=== PATIENT | female | born 1985 | race American Indian/Alaskan Native ===

== ENCOUNTER 2016-07-05 11:29 | Emergency (ER) | payer OTHER ==
[2016-07-05] MEDS ORDERED: DUONEB 0.5 MG-3 MG/3 ML SOLN IH ONE (13:40)
[2016-07-05] MEDS ORDERED: TORADOL IM ONE (13:40)
--- NOTE | 2016-07-05 13:41 | Emergency Department Report ---
- General Chief Complaint: Upper Respiratory Infection Stated Complaint: NECK AND HEAD PAIN/STOMACH PAIN/NASAL CONGESTION Time Seen by Provider: 07/05/16 13:16 Source: patient Mode of arrival: Ambulatory Limitations: No Limitations - History of Present Illness Initial Comments: This is a 31-year-old female well-nourished with nontoxic or ill in appearance that presents with congestion, headache, wheezing, productive cough for the past 2 weeks. Patient stated headache is a gradual onset that is aching in quality with a pain level of 2 out of a 10. Patient denies thunderclap headache. Denies nausea or vomiting. Denies abdominal pain, chest pain, fever , chills, shortness of breath, blurry vision, or visual changes. Patient stated has history of asthma and does not apartment care doctor. Patient denies taking anything [id number] or having prescription for asthma control. Patient states she is a smoker. Patient also complains of sore throat. Patient states she feels that she is swallowing razor blades. Patient denies drooling, difficulty swallowing, or breathing. Denies hoarseness. Denies alcohol or drug abuse. No known allergies. MD Complaint: cough (productive with yellow sputum production), sore throat -: Gradual, week(s) (2) Severity: mild Severity scale (0 -10): 2 Quality: sharp (sore throat), aching (headache) Consistency: constant Associated Symptoms: headache, sore throat, cough. denies: fever, chills, myalgias, diaphoresis, rhinorrhea, nasal congestion, stiff neck, chest pain, shortness of breath, abdominal pain, nausea, vomiting, diarrhea, dysuria, rash, confusion, right sweats, weight loss, epistaxis, hoarseness, ear pain - Related Data Previous Rx's Medication Instructions Recorded Last Taken Type ALBUTEROL NEB's [Proventil 0.083% 2.5 mg IH TID PRN #1 box 01/02/14 Unknown Rx NEBS] Nebulizer [Compact Compressor 1 each MC ONCE #1 kit 01/02/14 Unknown Rx Nebulizer] Prednisone [Prednisone 10 mg 10 mg PO .TAPER #1 tab.ds.pk 01/02/14 Unknown Rx (6-Day Pack, 21 Tabs)] ALBUTEROL Inhaler [ProAir HFA 2 puff IH QID PRN #1 inhalation 03/01/15 Unknown Rx Inhaler] Sulfamethoxazole/Trimethoprim 1 each PO BID #14 tablet 03/01/15 Unknown Rx [Bactrim DS TAB] metroNIDAZOLE [Flagyl] 500 mg PO Q12HR #14 tab 03/01/15 Unknown Rx ALBUTEROL Inhaler [ProAir HFA 1 puff IH PRN #1 inha 07/05/16 Unknown Rx Inhaler] Azithromycin [Zithromax Z-ADA] 250 mg PO DAILY 5 Days 07/05/16 Unknown Rx Prednisone [predniSONE] 40 mg PO QDAY 5 Days 07/05/16 Unknown Rx Allergies Allergy/AdvReac Type Severity Reaction Status Date / Time No Known Allergies Allergy Unverified 05/04/13 09:55 ED Review of Systems ROS: Stated complaint: NECK AND HEAD PAIN/STOMACH PAIN/NASAL CONGESTION Other details as noted in HPI Constitutional: denies: chills, fever Eyes: denies: eye pain, eye discharge, vision change ENT: denies: ear pain, throat pain Respiratory: cough, wheezing. denies: shortness of breath, SOB with exertion, SOB at rest Cardiovascular: denies: chest pain, palpitations, dyspnea on exertion, orthopnea , edema, syncope, paroxysmal nocturnal dyspnea Endocrine: no symptoms reported Gastrointestinal: denies: abdominal pain, nausea, vomiting, diarrhea, constipation, hematemesis, melena, hematochezia Genitourinary: denies: urgency, dysuria, discharge Musculoskeletal: denies: back pain, joint swelling, arthralgia Skin: denies: rash, lesions Neurological: headache. denies: weakness, numbness, paresthesias, confusion, abnormal gait, vertigo Psychiatric: denies: anxiety, depression Hematological/Lymphatic: denies: easy bleeding, easy bruising ED Past Medical Hx - Past Medical History Previous Medical History?: Yes Hx Asthma: Yes - Surgical History Past Surgical History?: Yes Additional Surgical History: ectopic --right tube removed - Social History Smoking Status: Current Every Day Smoker Substance Use Type: Alcohol - Medications Home Medications: Home Medications Medication Instructions Recorded Confirmed Last Taken Type ALBUTEROL NEB's [Proventil 0.083% 2.5 mg IH TID PRN #1 box 01/02/14 Unknown Rx NEBS] Nebulizer [Compact Compressor 1 each MC ONCE #1 kit 01/02/14 Unknown Rx Nebulizer] Prednisone [Prednisone 10 mg 10 mg PO .TAPER #1 tab.ds.pk 01/02/14 Unknown Rx (6-Day Pack, 21 Tabs)] ALBUTEROL Inhaler [ProAir HFA 2 puff IH QID PRN #1 inhalation 03/01/15 Unknown Rx Inhaler] Sulfamethoxazole/Trimethoprim 1 each PO BID #14 tablet 03/01/15 Unknown Rx [Bactrim DS TAB] metroNIDAZOLE [Flagyl] 500 mg PO Q12HR #14 tab 03/01/15 Unknown Rx ALBUTEROL Inhaler [ProAir HFA 1 puff IH PRN #1 inha 07/05/16 Unknown Rx Inhaler] Azithromycin [Zithromax Z-ADA] 250 mg PO DAILY 5 Days 07/05/16 Unknown Rx Prednisone [predniSONE] 40 mg PO QDAY 5 Days 07/05/16 Unknown Rx ED Physical Exam - General Limitations: No Limitations General appearance: alert, in no apparent distress - Head Head exam: Present: atraumatic, normocephalic, normal inspection - Eye Eye exam: Present: normal appearance, PERRL, EOMI Pupils: Present: normal accommodation - ENT ENT exam: Present: normal exam, normal orophraynx, mucous membranes moist, TM's normal bilaterally, normal external ear exam - Neck Neck exam: Present: normal inspection, full ROM. Absent: tenderness, meningismus, lymphadenopathy, thyromegaly - Respiratory Respiratory exam: Present: normal lung sounds bilaterally, wheezes (bilateral upper and lower lobes). Absent: respiratory distress, rales, rhonchi, stridor, chest wall tenderness, accessory muscle use, decreased breath sounds, prolonged expiratory - Cardiovascular Cardiovascular Exam: Present: regular rate, normal rhythm, normal heart sounds. Absent: bradycardia, tachycardia, irregular rhythm, systolic murmur, diastolic murmur, rubs, gallop - GI/Abdominal GI/Abdominal exam: Present: soft, normal bowel sounds. Absent: distended, tenderness - Extremities Exam Extremities exam: Present: normal inspection, full ROM, normal capillary refill. Absent: tenderness, pedal edema, joint swelling, calf tenderness - Back Exam Back exam: Present: normal inspection, full ROM. Absent: tenderness, CVA tenderness (R), CVA tenderness (L), muscle spasm, paraspinal tenderness, vertebral tenderness, rash noted - Neurological Exam Neurological exam: Present: alert, oriented X3, CN II-XII intact, normal gait - Psychiatric Psychiatric exam: Present: normal affect, normal mood - Skin Skin exam: Present: warm, dry, intact, normal color. Absent: rash ED Course Vital Signs 07/05/16 07/05/16 07/05/16 11:37 14:09 14:10 Temperature 98.2 F Pulse Rate 89 Pulse Rate [ 87 86 Right Middle Lobe] Respiratory 20 Rate Respiratory 18 18 Rate [Right Middle Lobe] Blood Pressure 122/78 O2 Sat by Pulse 100 Oximetry - Reevaluation(s) Reevaluation #1: 07/05/16 13:59 Peak flow pre-DuoNeb = Reevaluation #2: 07/05/16 14:29 Peak flow Post DuoNeb treatment= 350 ED Medical Decision Making - Medical Decision Making Ed course: This is a 31-year-old female that presented with upper respiratory infection. 1- after my physical exam, patient received a chest x-ray to rule out pneumonia. Xray no acute findings. Dictated by Dr. Szymanski. 2- patient also received a UA test because patient stated is unaware if she is . 3-patient received Solu-Medrol IM 40 mg and DuoNeb in the ED. 4- a peak flow pre-and post has been obtained. Pre-= 200 Post = 350 5- patient was discharged with prednisone 40 mg by mouth, Z-Ada for 5 days, and albuterol when necessary. 6- patient was instructed to follow-up with her primary care doctor or referred primary care doctor in 3-5 days or if symptoms worsen such as chest pain, shortness of breath, wheezing, difficult breathing, nausea vomiting, severe headache, numbness or tingling sensation extremities to report back emergency room. 7- at time time of discharge, the patient does not seem toxic or ill in appearance. No acute signs of distress noted. Patient agrees to discharge treatment plan of care. No further questions noted by the patient. Critical care attestation.: If time is entered above; I have spent that time in minutes in the direct care of this critically ill patient, excluding procedure time. ED Disposition Clinical Impression: Upper respiratory infection Qualifiers: URI type: unspecified URI Qualified Code(s): J06.9 - Acute upper respiratory infection, unspecified Disposition: DISCHARGED TO HOME OR SELFCARE Is pt being admited?: No Does the pt Need Aspirin: No Condition: Stable Instructions: Upper Respiratory Infection (ED) Additional Instructions: Follow-up with your primary care doctor in 3-5 days or if symptoms worsen such as chest pain, shortness of breath, wheezing, difficult breathing, nausea vomiting, severe headache, numbness or tingling sensation extremities to report back emergency room. Take azithromycin, prednisone, albuterol as prescribed. Prescriptions: ALBUTEROL Inhaler [ProAir HFA Inhaler] 1 puff IH PRN #1 inha Azithromycin [Zithromax Z-ADA] 250 mg PO DAILY 5 Days Prednisone [predniSONE] 40 mg PO QDAY 5 Days Referrals: PRIMARY CAREMD [Primary Care Provider] - 3-[address] [facility] [Outside] - 3-[address] [facility] [Outside] - 3-5 Days YEN ARMENDARIZ MD [Staff Physician] - 3-5 Days Forms: Work/School Release Form(ED)
--- NOTE | 2016-07-05 16:04 | XRay Report ---
FINAL REPORT EXAM: XR CHEST ROUTINE 2V HISTORY: wheezing/sob TECHNIQUE: 2 views of the chest PRIORS: None FINDINGS: Normal heart size. No pleural effusion or pneumothorax. Lungs are clear. No vascular congestion. IMPRESSION: 1. No acute finding.
[2016-07-05 16:19] VITALS: BP 130/83
== END 2016-07-05 16:18 | disposition home or self-care (01) ==
LOC: ED 11:29
DX: J06.9 Acute upper respiratory infection, unspecified (principal); J45.909 Unspecified asthma, uncomplicated; F17.200 Nicotine dependence, unspecified, uncomplicated
CPT/HCPCS: 71020; 81025; 94640; 96372; 99284; J1885; J2920